=== PATIENT | male | born 1990 | race Caucasian/White ===

== ENCOUNTER 2017-09-22 08:42 | Inpatient (IN) | payer BC ==
[~2017-09-22] VITALS: Ht 182.9 cm; Wt 73.7 kg
[~2017-09-22 08:42] MED LIST: NORCO1 TA2 PO; ZOFRAN ODT4 MG SL
[2017-09-22 08:48] VITALS: Ht 182.9 cm; Wt 73.7 kg
[2017-09-22 09:47] LABS: BASOPHIL % 0.2 % (0-2); PLATELET COUNT 213 x10^3mcL (130-400); RED CELL DISTRIBUTION WIDTH 14.3 % (11.5-14.5)
[2017-09-22 09:51] LABS: CALCIUM 8.9 mg/dL (8.5-10.1); CARBON DIOXIDE 28.8 mmol/L (21-32); CHLORIDE SERUM 101 mmol/L (98-107); CREATININE SERUM 1.1 mg/dL (0.7-1.3); GFR1 > 60 mL/min; GLUCOSE SERUM 138 mg/dL (74-106); POTASSIUM SERUM 3.9 mmol/L (3.5-5.1); SODIUM SERUM 140 mmol/L (136-145)
[2017-09-22 09:54] LABS: ALBUMIN 4.1 g/dL (3.4-5.0); ALKALINE PHOSPHATASE 65 U/L (46-116); ALT/SGPT 34 U/L (16-63); AST/SGOT 21 U/L (15-37); BILIRUBIN TOTAL 0.4 mg/dL (0.20-1.00); TOTAL PROTEIN, SERUM 7.1 g/dL (6.4-8.2)
[2017-09-22] MEDS ORDERED: OXYCODONE HYDRO30 MG PO (10:20)
[2017-09-22] MEDS ORDERED: NEURONTIN100 MG PO (10:20)
[2017-09-22 11:10] LABS: T3 TOTAL 1.72 ng/mL
[2017-09-22 11:11] LABS: MAGNESIUM 2.4 mg/dL (1.8-2.4); PHOSPHOROUS 5.9 mg/dL (2.5-4.9)
[2017-09-22 11:16] LABS: FREE T4 0.94 ng/dL (0.76-1.46); FREE THYROXINE INDEX 2.6 ug/dL (1.4-4.5)
[2017-09-22 11:24] LABS: CHOLESTEROL/HDL RATIO 2.1
[2017-09-22 11:32] VITALS: BP 119/68
[2017-09-22 11:49] VITALS: BP 119/68
[2017-09-22 11:50] LABS: microscopic required? NO
[2017-09-22 12:23] LABS: AMPHETAMINE QUAL UR NONE DETECTED (NEG <=1000)
[2017-09-22 12:46] LABS: UA SPECIFIC GRAVITY 1.015 (1.005-1.035); urine erythrocyte NEGATIVE (NEGATIVE)
[2017-09-22 16:07] VITALS: BP 85/50
[2017-09-22 16:47] VITALS: BP 85/50
[2017-09-22 16:55] VITALS: BP 96/58
[2017-09-22 20:40] VITALS: BP 99/44
[2017-09-23 05:58] VITALS: BP 90/51
[2017-09-23 09:05] VITALS: BP 97/55
== END 2017-09-23 10:40 | disposition left against medical advice (07) | DRG 918 ==
LOC: ED 08:42 → DU 10:08
PROVIDERS: Emergency Medicine; Family Medicine
DX: T40.2X1A Poisoning by other opioids, accidental (unintentional), initial encounter (principal); K29.70 Gastritis, unspecified, without bleeding; E83.39 Other disorders of phosphorus metabolism; D64.9 Anemia, unspecified; Z68.23 Body mass index [BMI] 23.0-23.9, adult; Y92.013 Bedroom of single-family (private) house as the place of occurrence of the external cause; Z88.8 Allergy status to other drugs, medicaments and biological substances; Z83.3 Family history of diabetes mellitus; Z82.49 Family history of ischemic heart disease and other diseases of the circulatory system; Z80.9 Family history of malignant neoplasm, unspecified; F17.210 Nicotine dependence, cigarettes, uncomplicated; Z66 Do not resuscitate
CPT/HCPCS: 83880; 84439; G0480; J0133; J0696; J1885; J1956; J2405; J3370; J7030; Q0092; Q0163

== ENCOUNTER 2017-12-27 21:12 | Emergency (ER) | payer OTHER ==
[~2017-12-27 21:12] MED LIST changes: +NEURONTIN100 MG PO; +OXYCODONE HYDRO30 MG PO
[2017-12-27 21:24] VITALS: BP 118/71
== END 2017-12-27 23:16 | disposition left against medical advice (07) ==
LOC: ED 21:12
DX: Z53.21 Procedure and treatment not carried out due to patient leaving prior to being seen by health care provider (principal)

== ENCOUNTER 2018-09-07 19:14 | Emergency (ER) | payer OTHER ==
[~2018-09-07] VITALS: Ht 182.9 cm; Wt 84.4 kg
[2018-09-07 19:48] VITALS: BP 142/92; Ht 182.9 cm; Wt 84.4 kg
== END 2018-09-07 20:31 | disposition home or self-care (01) ==
LOC: ED 19:14
DX: Z76.0 Encounter for issue of repeat prescription (principal); G56.90 Unspecified mononeuropathy of unspecified upper limb; G89.29 Other chronic pain; Z90.89 Acquired absence of other organs
CPT/HCPCS: J1885